=== PATIENT | male | born 1965 | race Caucasian/White ===

== ENCOUNTER → 2016-11-22 | Outpatient (CLI) | payer BC ==
--- NOTE | ~2016-11-22 | CR58 ---
[facility] A Service of [facility] & [facility] RADIOLOGY TEXT RESULTS PATIENT: JOSH MAE LOCATION: [facility] : 61 UNIT #: [id number] AGE: [address]: Della Davidson MD SEX: M ORDER DR: [id number] [facility] [address] [place], [place] [address] [id number] O MR#: [id number] Acc #: [id number] NAME: JOSH MAE : 1965 SEX: M STUDY DATE/TIME: 11/22/2016 17:18 UNIT: [facility] ROOM: STUDY DESCRIPTION: CR Cervical Spine 2 or 3 Views Attending Physician: Della Davidson M.D. Referring Physician: Della Davidson M.D. Ordering Physician: Della Davidson M.D. Primary Care Physician: Clayton Cardona M.D. MEDICAL IMAGING REPORT This report is preliminary unless electronic signature is present EXAM Cervical spine series HISTORY Neck pain and stiffness for the past 6 days. TECHNIQUE 3 views of the cervical spine were obtained. FINDINGS Degenerative changes are seen at all cervical discs. Degenerative changes mild at C2-3 and C6-7 with small osteophytes. There is moderate degenerative disc disease with disc space narrowing and moderate osteophyte formation at C3-4, C4-5 and C5-6 worst at the C5-6 level. Advanced facet arthropathy is seen at C3-4 bilaterally and there is a slight anterolisthesis from degenerative facet disease at the C3-4 level. There is no evidence of fracture or bone destruction. Calcifications are seen with carotid bifurcations on both sides. IMPRESSION Degenerative disc and facet disease as described above. Facet degenerative changes are most severe at C3-4. Degenerative disc disease is more severe at C5-6. No acute findings. Dictated by... Derik Guzmán M.D. THIS IS AN ELECTRONICALLY VERIFIED REPORT Derik Guzmán M.D. at 11/25/2016 5:23 PM RLF/tavon TD: 11/22/2016 22:13 JOB #: [id number] [facility] A Service of [facility] & [facility] RADIOLOGY TEXT RESULTS PATIENT: JOSH MAE LOCATION: [facility] #: [id number] : 61 UNIT #: [id number] AGE: [address]: Della Davidson MD SEX: M ORDER DR: MEDICAL IMAGING REPORT Page 1 of 1 COPY
--- NOTE | ~2016-11-22 | CR229 ---
[facility] A Service of [facility] RADIOLOGY TEXT RESULTS PATIENT: JOSH MAE LOCATION: [facility] : 61 UNIT #: [id number] AGE: [address]: Della Davidson MD SEX: M ORDER DR: [id number] [facility] [address] [place], [place] [address] [id number] O MR#: [id number] Acc #: [id number] NAME: JOSH MAE : 1965 SEX: M STUDY DATE/TIME: 11/22/2016 17:26 UNIT: [facility] ROOM: STUDY DESCRIPTION: CR Shoulder Min 2 View Lt Attending Physician: Della Davidson M.D. Referring Physician: Della Davidson M.D. Ordering Physician: Della Davidson M.D. Primary Care Physician: Clayton Cardona M.D. MEDICAL IMAGING REPORT This report is preliminary unless electronic signature is present EXAM Left shoulder. HISTORY Left shoulder pain for the past week. No known trauma TECHNIQUE 3 views of the shoulder were obtained. FINDINGS Hypertrophic degenerative changes seen at the acromioclavicular joint to a moderate degree, and there is mild osteophyte formation at the glenohumeral joint. There is no evidence of fracture, subluxation or abnormal bony erosion. There is a small calcifications seen adjacent to the greater tuberosity of the humeral head. This likely represents a chronic calcification in the rotator cuff. IMPRESSION No acute findings. 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 Chronic appearing calcification in the rotator cuff. Dictated by... Derik Guzmán M.D. THIS IS AN ELECTRONICALLY VERIFIED REPORT Derik Guzmán M.D. at 11/25/2016 5:23 PM DAYANARA/sandra TD: 11/22/2016 22:07 JOB #: [id number] [facility] A Service of [facility] & [facility] RADIOLOGY TEXT RESULTS PATIENT: JOSH MAE [id number] : 61 UNIT #: [id number] AGE: [address]: Della Davidson MD SEX: M ORDER DR: MEDICAL IMAGING REPORT Page 1 of 1 COPY
== END | disposition home or self-care (01) ==
LOC: CRAD 16:59
DX: M54.2 Cervicalgia (principal); M25.812 Other specified joint disorders, left shoulder; M50.31 Other cervical disc degeneration, high cervical region; M50.321 Other cervical disc degeneration at C4-C5 level; M50.322 Other cervical disc degeneration at C5-C6 level; M46.92 Unspecified inflammatory spondylopathy, cervical region; M43.12 Spondylolisthesis, cervical region; I65.23 Occlusion and stenosis of bilateral carotid arteries; M47.812 Spondylosis without myelopathy or radiculopathy, cervical region
CPT/HCPCS: 72040; 73030